=== PATIENT | male | born 1950 | race Caucasian/White ===

== ENCOUNTER 2017-01-14 10:57 | Day surgery (SDC) | payer OTHER, MEDICARE ==
[2017-01-13 12:12] VITALS: BMI 34.9
[2017-01-14] MEDS ORDERED: LIDOCAINE HCL 2% (20ML MULTI-DOSE VIAL) NR ONE (12:08)
[2017-01-14] MEDS ORDERED: PROPOFOL 20 ML ONE ×4 (12:08)
[2017-01-14 13:20] VITALS: TEMP 98.4
[2017-01-14 13:21] VITALS: PULSE 49
[2017-01-14 14:08] VITALS: BP 110/50
--- NOTE | 2017-01-17 13:13 | PATH ---
Surgical Pathology Report Patient Name: REYMUNDO REYNAGA [facility]. Rec. #: [id number] /Age/Gender: 1950 (Age: 66) / M Account: [id number] Location: [facility]-ENDOSCOPY Taken: 01/14/2017 Received: 01/14/2017 Reported: 01/17/2017 Physicians: Aftab Starr M.D. Specimen(s) Received A: DESCENDING COLON POLYP B: TRANSVERSE COLON POLYP C: BX CECAL POLYP D: DESCENDING COLON POLYP-HOT SNARE Clinical History Screening Diverticulosis, colon polyp, redundant colon Final Diagnosis A. COLON, DESCENDING, POLYP, BIOPSY: TUBULAR ADENOMA. B. COLON, TRANSVERSE, POLYP, POLYPECTOMY: FRAGMENTS OF HYPERPLASTIC TYPE POLYP WITH FOCAL FEATURES OF SESSILE SERRATED ADENOMA AND CAUTERY ARTIFACT. C. COLON, CECUM, POLYP, BIOPSY: HYPERPLASTIC TYPE POLYP WITH FOCAL FEATURES OF SESSILE SERRATED ADENOMA. D. COLON, DESCENDING, POLYP, POLYPECTOMY: SERRATED ADENOMA WITH VILLOUS ARCHITECTURE. Electronically Signed Vinayak Collier M.D. Gross Description A. Received in formalin, labeled "biopsy descending colon polyp" are 3 saeed, irregular portions of soft tissue ranging from 0.1-0.5 cm in greatest dimension. The specimens are submitted in toto in one cassette. B. Received in formalin, labeled "biopsy transverse colon polyp" are 5 saeed, irregular portions of soft tissue ranging from 0.1-0.3 cm in greatest dimension. The specimens are submitted in toto in one cassette. C. Received in formalin, labeled "biopsy cecal polyp" is a saeed, irregular portion of soft tissue measuring 0.4 cm in greatest dimension. The specimen is submitted in toto in one cassette. D. Received in formalin, labeled "descending colon polyp" is a saeed, irregular portion of soft tissue measuring 0.2 cm in greatest dimension. The specimen is submitted in toto in one cassette. 01/14/201701/14/2017
== END 2017-01-14 14:08 | disposition home or self-care (01) ==
LOC: JASU-ENDO 10:57
PROVIDERS: ATTEND Internal Medicine Gastroenterology
PROC: 0DBL8ZX Excision of Transverse Colon, Via Natural or Artificial Opening Endoscopic, Diagnostic (ICD-10-PCS; 2017-01-14)
PROC: 0DBM8ZX Excision of Descending Colon, Via Natural or Artificial Opening Endoscopic, Diagnostic (ICD-10-PCS; 2017-01-14)
PROC: 0DBL8ZX Excision of Transverse Colon, Via Natural or Artificial Opening Endoscopic, Diagnostic (ICD-10-PCS; 2017-01-14)
PROC: 0DBM8ZX Excision of Descending Colon, Via Natural or Artificial Opening Endoscopic, Diagnostic (ICD-10-PCS; principal; 2017-01-14 12:30)
DX: Z86.010 Personal history of colon polyps (principal); D12.4 Benign neoplasm of descending colon; K63.5 Polyp of colon; D12.0 Benign neoplasm of cecum; D12.3 Benign neoplasm of transverse colon; K64.8 Other hemorrhoids; K57.30 Diverticulosis of large intestine without perforation or abscess without bleeding; E66.01 Morbid (severe) obesity due to excess calories; Z68.34 Body mass index [BMI] 34.0-34.9, adult
CPT/HCPCS: 88305-TC

== ENCOUNTER 2022-05-23 08:32 | Emergency (ER) | payer OTHER, MEDICARE ==
[2022-05-23 08:37] VITALS: BP 115/79; PULSE 53; RESP 18; TEMP 97.4; BMI 38.3
[2022-05-23] MEDS ORDERED: ACETAMINOPHEN 325 MG TABLET (FP) PO ONE (09:26)
[2022-05-23] MEDS ORDERED: KETOROLAC TROMETHAMINE 15 MG/ML VIAL IM ONE (09:26)
[2022-05-23] MEDS ORDERED: diazePAM 5 MG TABLET PO ONE (09:26)
[2022-05-23] MEDS ORDERED: LIDOCAINE 5% TOPICAL PATCH TP ONE (09:26)
[2022-05-23] MEDS ORDERED: LIDOCAINE 5% TOPICAL PATCH ONE (09:50)
[2022-05-23] MEDS ORDERED: KETOROLAC TROMETHAMINE 15 MG/ML VIAL ONE (09:51)
[2022-05-23] MEDS ORDERED: diazePAM 5 MG TABLET ONE (09:51)
[2022-05-23] MEDS ORDERED: ACETAMINOPHEN 325 MG TABLET (FP) ONE (09:51)
[2022-05-23] MEDS ORDERED: LIDOCAINE PATCH REMOVAL MC ONE (22:00)
== END 2022-05-23 13:25 | disposition home or self-care (01) ==
LOC: JERFT 08:32 → JER 08:32 → JERFT 13:25
PROC: 3E0233Z Introduction of Anti-inflammatory into Muscle, Percutaneous Approach (ICD-10-PCS; principal; 2022-05-23)
DX: M54.31 Sciatica, right side (principal)
CPT/HCPCS: 99283-25